=== PATIENT | male | born 1995 | race Caucasian/White ===

== ENCOUNTER 2022-08-07 18:10 | Emergency (ER) | payer OTHER ==
[2022-08-07 18:15] VITALS: BP 116/73; PULSE 88; RESP 18; TEMP 102.2; BMI 25.9
[2022-08-07] MEDS ORDERED: ACETAMINOPHEN 500 MG TABLET (FP) PO ONE (18:30)
[2022-08-07] MEDS ORDERED: IBUPROFEN 600 MG TABLET (FP) PO ONE ×2 (18:30→18:43)
[2022-08-07] MEDS ORDERED: ACETAMINOPHEN 500 MG TABLET (FP) ONE (18:44)
[2022-08-07 19:51] LABS: THROAT:GRP A STREP NOT DETECTED (NOTDETECTED)
[2022-08-07] MEDS ORDERED: AMOXICILLIN 500 MG CAPSULE (FP) PO ONE (19:57)
[2022-08-07 19:59] LABS: SARS COV-2 MOLECULAR IN-HOUSE NEGATIVE (NEGATIVE)
[2022-08-07] MEDS ORDERED: AMOXICILLIN 250 MG CAPSULE ONE (20:11)
== END 2022-08-07 20:38 | disposition home or self-care (01) ==
LOC: JERFT 18:10
DX: R50.9 Fever, unspecified (principal); M79.10 Myalgia, unspecified site; M54.9 Dorsalgia, unspecified; R07.0 Pain in throat; J03.90 Acute tonsillitis, unspecified; J02.9 Acute pharyngitis, unspecified; Z20.822 Contact with and (suspected) exposure to COVID-19
CPT/HCPCS: 87635; 87651; 99283-25

== ENCOUNTER → 2022-08-08 | Emergency (ER) | payer OTHER ==
[~2022-08-08] MED LIST: ACETAMINOPHEN 1000 MG/100 ML BAG IVPB ONE; ACETAMINOPHEN INJECTION 100 ML IVPB ONE; ACYCLOVIR IVPB ONE; CEFTRIAXONE 1,500 MG in DEXTROSE 5%-WATER - 50 ML IVPB ONE; CEFTRIAXONE 2 GM/100 ML BAG IVPB ONE; CEFTRIAXONE 2,000 MG in DEXTROSE 5%-WATER - 50 ML IVPB ONE; DEXTROSE 5% IVPB ONE; METOCLOPRAMIDE HCL INJECTION 10 MG/2 ML VIAL IVPB ONE; METOCLOPRAMIDE HCL INJECTION 10 MG/2 ML VIAL ONE; SODIUM CHLORIDE 0.9% 500 ML INFUS.BAG IV ONE; VANCOMYCIN HCL 1,500 MG in DEXTROSE 5%-WATER - 500 ML IVPB ONE; WATER IVPB ONE
[2022-08-08 12:56] VITALS: BP 115/58; PULSE 99; RESP 17; TEMP 100.8; BMI 27.2
[2022-08-08 16:14] LABS: BASO % 1.1 % (0-2.0); EOS % 0.1 % (0-4.5); HEMATOCRIT 42.8 % (35.4-49); HEMOGLOBIN 14.5 GM/dL (11.7-16.9); LYMPH % 22.8 % (8-40); MCH 28.9 pg (25.7-33.7); MEAN CELL VOLUME 85.1 fl (80-96); MEAN PLT VOLUME 7.9 fl (7.5-11.1); MONO % 11.3 % (3.8-10.2); NEUT % 64.7 % (42.8-82.8); PLATELET COUNT 205 10^3/uL (134-434); RBC 5.03 M/mm3 (4.00-5.60); RDW 14.2 % (11.9-15.9); WHITE BLOOD COUNT 4.4 K/mm3 (4.0-10.0)
[2022-08-08 16:19] LABS: URINE APPEARANCE CLEAR; URINE BILIRUBIN NEGATIVE (NEGATIVE); URINE COLOR YELLOW; URINE GLUCOSE (UA) NEGATIVE (NEGATIVE); URINE KETONE TRACE (NEGATIVE); URINE LEUK ESTERASE NEGATIVE (NEGATIVE); URINE NITRITE NEGATIVE (NEGATIVE); URINE PROTEIN TRACE (NEGATIVE); URINE UROBILINOGEN 0.2 mg/dL (0.2-1.0)
[2022-08-08 16:39] LABS: CALCIUM 9.3 mg/dL (8.5-10.1)
[2022-08-08 16:40] LABS: ALBUMIN 3.9 g/dl (3.4-5.0); BLOOD UREA NITROGEN 13.1 mg/dL (7-18)
[2022-08-08 16:45] LABS: BILIRUBIN,TOTAL 0.4 mg/dL (0.2-1); TOT PROT 7.6 g/dl (6.4-8.2)
[2022-08-08 17:27] LABS: POTASSIUM 4.3 mmol/L (3.5-5.1)
[2022-08-08 18:35] LABS: BF GLUCOSE (CSF ONLY) 58 mg/dL (40-70)
[2022-08-08 18:58] LABS: CSF APPEARANCE CLEAR (CLEAR); CSF COLOR COLORLESS (COLORLESS); CSF WBC 4 mm3 (0-5)
== END | disposition left against medical advice (07) ==
LOC: JER 12:33
PROC: 3E03329 Introduction of Other Anti-infective into Peripheral Vein, Percutaneous Approach (ICD-10-PCS; principal; 2022-08-08)
PROC: 3E033GC Introduction of Other Therapeutic Substance into Peripheral Vein, Percutaneous Approach (ICD-10-PCS; 2022-08-08)
PROC: 3E033GC Introduction of Other Therapeutic Substance into Peripheral Vein, Percutaneous Approach (ICD-10-PCS; 2022-08-08)
DX: R21 Rash and other nonspecific skin eruption (principal); R50.81 Fever presenting with conditions classified elsewhere
CPT/HCPCS: 0241U-QW; 36415; 80053; 81003; 82945; 84157; 85025; 86694; 86735; 86765; 86780; 86787; 86788; 86789; 87040; 87070; 87086; 87205; 87252; 87491; 87529; 87591; 87593; 87661; 87798; 99285-25

== ENCOUNTER 2022-08-09 20:40 | Inpatient (IN) | payer OTHER ==
[2022-08-09 20:49] VITALS: BMI 24.2
[2022-08-09] MEDS ORDERED: VANCOMYCIN 1 GM in D5W (PRE-DOCKED) 1,000 MG/250 ML (RESTRICTED TO ID ONLY IVPB ONE (23:51)
[2022-08-09] MEDS ORDERED: CEFTRIAXONE 1,000 MG in DEXTROSE 5%-WATER - 50 ML IVPB ONE (23:51)
[2022-08-09] MEDS ORDERED: ACYCLOVIR IVPB ONE (23:59)
[2022-08-09] MEDS ORDERED: DEXTROSE 5% IVPB ONE (23:59)
[2022-08-09] MEDS ORDERED: WATER IVPB ONE (23:59)
[2022-08-09] MEDS ORDERED: ACETAMINOPHEN 1000 MG/100 ML BAG IVPB ONE (23:59)
[2022-08-09] MEDS ORDERED: SODIUM CHLORIDE 0.9% 500 ML INFUS.BAG IV ONE (23:59)
[2022-08-10] MEDS ORDERED: ACETAMINOPHEN INJECTION 100 ML IVPB ONE (00:12)
[2022-08-10] MEDS ORDERED: VANCOMYCIN/WATER FOR INJ (PEG) 1,000 MG/200 ML BAG IVPB ONE (00:12)
[2022-08-10] MEDS ORDERED: CEFTRIAXONE 1 GM/50 ML BAG ONE (00:13)
[2022-08-10] MEDS ORDERED: ACYCLOVIR IVPB ONE (00:15)
[2022-08-10] MEDS ORDERED: WATER IVPB ONE (00:15)
[2022-08-10] MEDS ORDERED: DEXTROSE 5% IVPB ONE (00:15)
[2022-08-10 00:45] LABS: BASO % 0.6 % (0-2.0); EOS % 0.1 % (0-4.5); HEMATOCRIT 42.5 % (35.4-49); HEMOGLOBIN 14.3 GM/dL (11.7-16.9); LYMPH % 37.7 % (8-40); MCH 28.9 pg (25.7-33.7); MCHC 33.6 g/dl (32.0-35.9); MEAN CELL VOLUME 86.2 fl (80-96); MEAN PLT VOLUME 8.1 fl (7.5-11.1); MONO % 13.3 % (3.8-10.2); NEUT % 48.3 % (42.8-82.8); PLATELET COUNT 190 10^3/uL (134-434); RBC 4.94 M/mm3 (4.00-5.60); RDW 13.9 % (11.9-15.9); WHITE BLOOD COUNT 5.4 K/mm3 (4.0-10.0)
[2022-08-10 01:08] LABS: POTASSIUM 4.1 mmol/L (3.5-5.1)
[2022-08-10 01:10] LABS: ALBUMIN 3.9 g/dl (3.4-5.0)
[2022-08-10 01:11] LABS: BLOOD UREA NITROGEN 14.3 mg/dL (7-18)
[2022-08-10 01:14] LABS: CREATININE 0.9 mg/dL (0.55-1.3)
[2022-08-10 01:15] LABS: BILIRUBIN,TOTAL 0.4 mg/dL (0.2-1); TOT PROT 7.5 g/dl (6.4-8.2)
[2022-08-10] MEDS: SODIUM CHLORIDE 1,000 ML IV SCH (06:32)
[2022-08-10 07:06] LABS: HEMATOCRIT 42.4 % (35.4-49); HEMOGLOBIN 13.7 GM/dL (11.7-16.9); MCH 28.6 pg (25.7-33.7); MCHC 32.3 g/dl (32.0-35.9); MEAN CELL VOLUME 88.5 fl (80-96); MEAN PLT VOLUME 8.7 fl (7.5-11.1); PLATELET COUNT 180 10^3/uL (134-434); RBC 4.79 M/mm3 (4.00-5.60); RDW 13.9 % (11.9-15.9); WHITE BLOOD COUNT 4.6 K/mm3 (4.0-10.0)
[2022-08-10 07:26] LABS: BLOOD UREA NITROGEN 12.1 mg/dL (7-18)
[2022-08-10 07:27] LABS: ALBUMIN 3.5 g/dl (3.4-5.0)
[2022-08-10 07:29] LABS: CREATININE 0.8 mg/dL (0.55-1.3)
[2022-08-10 07:30] LABS: BILIRUBIN,TOTAL 0.5 mg/dL (0.2-1); TOT PROT 6.9 g/dl (6.4-8.2)
[2022-08-10] MEDS ORDERED: ENOXAPARIN NA (PORCINE) 40 MG/0.4 ML DISP.SYRIN SQ ONE (10:49)
[2022-08-10] MEDS: ACYCLOVIR INJECTION 350 MG in DEXTROSE 5%-WATER - 100 ML IVPB SCH ×2 (11:21→19:09)
[2022-08-10] MEDS: ENOXAPARIN NA (PORCINE) 40 MG/0.4 ML DISP.SYRIN SQ SCH (11:21)
[2022-08-10 13:21] LABS: HIV INTERPRETATION NEGATIVE (NEGATIVE)
[2022-08-10 15:13] VITALS: RESP 18
[2022-08-11] MEDS ORDERED: CEFTRIAXONE 1 GM in DEXTROSE 5%-WATER - 50 ML IVPB ONE (01:00)
[2022-08-11] MEDS ORDERED: VANCOMYCIN 1 GM/200 ML PREMIX BAG (RESTRICTED TO ID ONLY) IVPB SCH (02:00)
[2022-08-11] MEDS ORDERED: ACETAMINOPHEN 1000 MG/100 ML BAG IVPB PRN (02:07)
[2022-08-11] MEDS ORDERED: ACETAMINOPHEN INJECTION 100 ML IVPB ONE (02:42)
[2022-08-11] MEDS: ACYCLOVIR INJECTION 350 MG in DEXTROSE 5%-WATER - 100 ML IVPB SCH ×3 (02:53→17:23)
[2022-08-11] MEDS: SODIUM CHLORIDE 1,000 ML IV SCH ×2 (06:41→21:41)
[2022-08-11] MEDS ORDERED: CALAMINE 8% TOPICAL LOTION 177 ML BOTTLE TP PRN (10:20)
[2022-08-11] MEDS ORDERED: diphenhydrAMINE HCL 25 MG CAPSULE (FP) PO PRN (10:30)
[2022-08-11] MEDS: ENOXAPARIN NA (PORCINE) 40 MG/0.4 ML DISP.SYRIN SQ SCH (12:14)
[2022-08-12] MEDS: ACYCLOVIR INJECTION 350 MG in DEXTROSE 5%-WATER - 100 ML IVPB SCH ×3 (01:02→17:43)
[2022-08-12] MEDS ORDERED: VANCOMYCIN 1 GM/200 ML PREMIX BAG (RESTRICTED TO ID ONLY) IVPB SCH (02:00)
[2022-08-12] MEDS: SODIUM CHLORIDE 1,000 ML IV SCH (06:00)
[2022-08-12 08:05] LABS: BASO % 0.7 % (0-2.0); HEMATOCRIT 40.1 % (35.4-49); HEMOGLOBIN 13.6 GM/dL (11.7-16.9); LYMPH % 43.8 % (8-40); MCH 29.3 pg (25.7-33.7); MEAN PLT VOLUME 7.9 fl (7.5-11.1); MONO % 15.6 % (3.8-10.2); NEUT % 36.9 % (42.8-82.8); PLATELET COUNT 220 10^3/uL (134-434); RBC 4.66 M/mm3 (4.00-5.60); WHITE BLOOD COUNT 6.5 K/mm3 (4.0-10.0)
[2022-08-12 08:21] LABS: CALCIUM 9.1 mg/dL (8.5-10.1)
[2022-08-12 08:22] LABS: BLOOD UREA NITROGEN 11.9 mg/dL (7-18)
[2022-08-12 08:29] LABS: CREATININE 0.8 mg/dL (0.55-1.3)
[2022-08-12] MEDS: ENOXAPARIN NA (PORCINE) 40 MG/0.4 ML DISP.SYRIN SQ SCH (10:16)
[2022-08-12] MEDS: MELATONIN 5 MG TABLETS PO SCH (21:45)
[2022-08-13] MEDS: ACYCLOVIR INJECTION 350 MG in DEXTROSE 5%-WATER - 100 ML IVPB SCH ×3 (01:40→17:10)
[2022-08-13] MEDS: SODIUM CHLORIDE 1,000 ML IV SCH ×2 (05:54→14:44)
[2022-08-13 09:25] LABS: BASO % 0.7 % (0-2.0); EOS % 3.3 % (0-4.5); HEMATOCRIT 40.4 % (35.4-49); HEMOGLOBIN 13.5 GM/dL (11.7-16.9); LYMPH % 42.6 % (8-40); MCH 28.6 pg (25.7-33.7); MCHC 33.3 g/dl (32.0-35.9); MEAN CELL VOLUME 85.9 fl (80-96); MEAN PLT VOLUME 7.8 fl (7.5-11.1); MONO % 7.2 % (3.8-10.2); NEUT % 46.2 % (42.8-82.8); PLATELET COUNT 259 10^3/uL (134-434); RDW 13.9 % (11.9-15.9)
[2022-08-13 09:52] LABS: POTASSIUM 3.9 mmol/L (3.5-5.1)
[2022-08-13 09:55] LABS: CALCIUM 8.8 mg/dL (8.5-10.1)
[2022-08-13 09:56] LABS: ALBUMIN 3.3 g/dl (3.4-5.0); BLOOD UREA NITROGEN 9.6 mg/dL (7-18); MAGNESIUM 2.1 mg/dL (1.8-2.4)
[2022-08-13 09:59] LABS: CREATININE 0.7 mg/dL (0.55-1.3)
[2022-08-13 10:00] LABS: BILIRUBIN,TOTAL 0.4 mg/dL (0.2-1); TOT PROT 7.1 g/dl (6.4-8.2)
[2022-08-13] MEDS: ENOXAPARIN NA (PORCINE) 40 MG/0.4 ML DISP.SYRIN SQ SCH (10:35)
[2022-08-13] MEDS: MELATONIN 5 MG TABLETS PO SCH (23:03)
[2022-08-14] MEDS: ACYCLOVIR INJECTION 350 MG in DEXTROSE 5%-WATER - 100 ML IVPB SCH ×2 (02:06→09:11)
[2022-08-14] MEDS: SODIUM CHLORIDE 1,000 ML IV SCH (04:30)
[2022-08-14] MEDS: ENOXAPARIN NA (PORCINE) 40 MG/0.4 ML DISP.SYRIN SQ SCH (09:11)
[2022-08-14 09:31] LABS: BASO % 0.6 % (0-2.0); EOS % 3.7 % (0-4.5); HEMOGLOBIN 14.2 GM/dL (11.7-16.9); LYMPH % 41.8 % (8-40); MEAN CELL VOLUME 88.1 fl (80-96); MEAN PLT VOLUME 8.2 fl (7.5-11.1); MONO % 7.8 % (3.8-10.2); NEUT % 46.1 % (42.8-82.8); PLATELET COUNT 316 10^3/uL (134-434); RBC 4.88 M/mm3 (4.00-5.60); RDW 13.5 % (11.9-15.9); WHITE BLOOD COUNT 5.3 K/mm3 (4.0-10.0)
[2022-08-14 09:48] LABS: POTASSIUM 4.4 mmol/L (3.5-5.1)
[2022-08-14 10:07] LABS: CALCIUM 9.4 mg/dL (8.5-10.1)
[2022-08-14 10:08] LABS: BLOOD UREA NITROGEN 11.1 mg/dL (7-18); MAGNESIUM 2.3 mg/dL (1.8-2.4)
[2022-08-14 10:09] LABS: ALBUMIN 3.6 g/dl (3.4-5.0)
[2022-08-14 10:11] LABS: CREATININE 0.7 mg/dL (0.55-1.3)
[2022-08-14 10:12] LABS: BILIRUBIN,TOTAL 0.6 mg/dL (0.2-1); TOT PROT 7.6 g/dl (6.4-8.2)
[2022-08-14 14:41] VITALS: BP 117/61; PULSE 52; TEMP 98.1
== END 2022-08-14 17:12 | disposition home or self-care (01) | DRG 723 ==
LOC: JER 20:40 → JERFT 20:40 → JERBED 23:52 → J6S 08-11 08:26
PROVIDERS: ADMIT Internal Medicine; ATTEND Nurse Practitioner Family
DX: B01.9 Varicella without complication (principal); R50.9 Fever, unspecified; R79.89 Other specified abnormal findings of blood chemistry
CPT/HCPCS: 0241U-QW; 36415; 71045-TC-FY; 76705-TC; 80048; 80053; 81003; 82945; 83735; 84157; 85025; 85027; 86694; 86735; 86765; 86780; 86787; 86788; 86789; 87040; 87070; 87086; 87205; 87252; 87389; 87491; 87529; 87591; 87593; 87661; 87798; 93005; 93010; 99285-25